=== PATIENT | female | born 1980 | race Hispanic/Latino ===

== ENCOUNTER 2017-09-09 11:20 | Outpatient (CLI) | payer BC ==
--- NOTE | 2017-09-09 14:18 | Fluoroscopy Report ---
GI series: Patient with lap band recently reduced in size with relief of reflux symptoms. The lap band appears in normal position. The patient was able swallow liquid barium without difficulty. There was rapid passage of contrast through the lap band into the stomach in both upright and prone positions. The thoracic esophagus is anatomically unremarkable. A small contour defect is identified on the gastric fundus from the band. The lap band lumen is widely patent. The anatomy of the stomach is not otherwise remarkable and there is rapid passage of barium through the pylorus into a normal-appearing proximal small bowel. No reflux identified in the supine position despite water provocation. Impressions: Widely patent esophagogastric junction with no reflux.
== END 2017-09-09 11:21 | disposition home or self-care (01) ==
LOC: FLUORO 11:20
PROVIDERS: ATTEND Specialist
DX: K21.9 Gastro-esophageal reflux disease without esophagitis (principal)
CPT/HCPCS: 74241